=== PATIENT | female | born 1945 | race American Indian/Alaskan Native ===

== ENCOUNTER 2020-03-30 07:56 | Day surgery (SDC) | payer MEDICARE ==
[2020-03-30] MEDS ORDERED: ASPIRIN EC 325 MG TAB PO ONE (08:14)
[2020-03-30 08:43] LABS: Basophils # (Auto) 0.1 K/mm3 (0.0-0.1); Eosinophils # (Auto) 0.2 K/mm3 (0.0-0.4); Hematocrit 38.3 % (30.3-42.9); Lymphocytes # (Auto) 2.7 K/mm3 (1.2-5.4); Lymphocytes % (Auto) 35.4 % (13.4-35.0); Mean Corpuscular HGB Conc 34 % (30-34); Mean Corpuscular Volume 84 fl (79-97); Monocytes # (Auto) 0.5 K/mm3 (0.0-0.8); Monocytes % (Auto) 6.8 % (0.0-7.3); Platelet Count 338 K/mm3 (140-440); Red Blood Count 4.55 M/mm3 (3.65-5.03); Red Cell Distribution Width 17.1 % (13.2-15.2)
[2020-03-30 08:52] LABS: INR 0.91 (0.87-1.13)
[2020-03-30 08:53] LABS: Partial Thromboplastin Time 29.2 Sec. (24.2-36.6)
[2020-03-30 08:55] LABS: BUN/Creatinine Ratio 20; Blood Urea Nitrogen 18 mg/dL (7-17); Calcium 9.1 mg/dL (8.4-10.2); Hemolysis Index 5
[2020-03-30] MEDS ORDERED: SODIUM CHLORIDE 0.9% 500 ML 500 ML IV SCH (09:00)
[2020-03-30] MEDS ORDERED: HEPARIN/NS 5000 UNIT/500ML 1,000 ML IR ONE (09:41)
[2020-03-30] MEDS ORDERED: HEPARIN 10,000 UNITS/10 ML VIAL ONE (09:41)
[2020-03-30] MEDS ORDERED: MIDAZOLAM 2 MG/2 ML INJ ONE (09:41)
[2020-03-30] MEDS ORDERED: VERAPAMIL 5 MG/2 ML INJ ONE (09:42)
[2020-03-30] MEDS ORDERED: NITROGLYCERIN SYRINGE 3 ML ONE (09:42)
[2020-03-30] MEDS ORDERED: fentaNYL 100 MCG/2 ML INJ ONE (09:42)
[2020-03-30] MEDS ORDERED: LIDOCAINE (2%) 20 MG/1 ML VIAL 20 ML MDV INFILTRATI ONE (09:42)
--- NOTE | 2020-03-30 10:46 | Cardiac Catherization Report ---
CARDIAC CATHETERIZATION REPORT REASON FOR PROCEDURE: Chest pain, history of coronary artery disease. PROCEDURES: 1. Left heart catheterization. 2. Selective left and right coronary angiography. 3. Left ventricular angiography. 4. Sedation time, start 10:05, end 10:18. I was present for the entire procedure and supervised the moderate sedation protocol. The patient was prepped and draped in a sterile fashion after informed consent. The right radial cath site was prepped and draped after a negative Robert's test. The right radial artery was entered using Seldinger technique followed by placement of a 6-Tajik hydrophilic sheath. Routine radial cocktail was administered via the sheath. Selective left and right coronary angiography was performed using a #3.5 left Og, and a #4 right Og. The pigtail catheter was used for left ventricular angiography. The catheters were then removed, sheath removed, and hemostasis achieved using a TR band. The patient was returned to the postprocedure unit in stable condition. There were no complications. FINDINGS: HEMODYNAMICS: Left ventricular end-diastolic pressure was 24, following coronary angiography. Ascending aortic pressure was 137/80. There was no significant pressure gradient on pullback across the aortic valve. CORONARY ANGIOGRAPHY: The left main coronary artery was free of significant disease. A small to medium sized proximal diagonal branch of the LAD contained a 70-80% stenosis of its proximal segment, otherwise the LAD and the rest of the diagonal system was free of significant disease. A large ramus intermedius artery was free of significant disease. The circumflex artery contained mild irregularities in its distal segment. The right coronary artery was dominant. This vessel was completely occluded in its proximal to mid segment. This was a chronic total occlusion. There was collateralization of the distal right coronary segments from the left coronary system. There was overall mild left ventricular systolic dysfunction with ejection fraction 40-45%. We noted a [id number] degree of mid and basal inferior hypokinesis. CONCLUSIONS: 1. Coronary artery disease with chronic total occlusion of the right coronary artery, perfused by left to right collaterals. 2. Borderline severity stenosis of a small to medium sized diagonal branch of the LAD, otherwise the left coronary system is free of significant disease. 3. Mild left ventricular systolic dysfunction with ejection fraction of 40-45%. RECOMMENDATION: Continue risk factor modification and medical therapy. If the patient's angina persists on optimal medical therapy, consider [employer] intervention to the right coronary artery. JOB# [id number] CHRIS/DEMETRA
[2020-03-30] MEDS ORDERED: traMADol 50 MG TAB PO PRN (11:03)
[2020-03-30] MEDS ORDERED: HYDROcodone/ACETAMINOPHEN 5-325 MG TAB PO PRN (11:03)
--- NOTE | 2020-03-30 11:07 | Discharge Summary ---
Short Stay Discharge Plan Activity: advance as tolerated Weight Bearing Status: Full Weight Bearing Diet: low fat, low cholesterol, low salt, diabetic Wound: keep clean and dry Special Instructions: smoking cessation, no heavy lifting (3 days), hold Metformin (for 48hrs post procedure) Follow up with: PRIMARY CAREMD [Primary Care Provider] - 7 Days DOT KING MD [Staff Physician] - 7 Days
[2020-03-30] MEDS ORDERED: SODIUM CHLORIDE 0.9% 1000 ML 1,000 ML IV SCH (11:15)
[2020-03-30 15:16] VITALS: BP 140/71
== END 2020-03-30 15:00 | disposition home or self-care (01) ==
LOC: CATHLABREC 07:56
PROVIDERS: ATTEND Internal Medicine Cardiovascular Disease
DX: R07.89 Other chest pain (principal); I25.10 Atherosclerotic heart disease of native coronary artery without angina pectoris; F17.210 Nicotine dependence, cigarettes, uncomplicated; H40.9 Unspecified glaucoma; E78.00 Pure hypercholesterolemia, unspecified; I10 Essential (primary) hypertension; M19.90 Unspecified osteoarthritis, unspecified site; J44.9 Chronic obstructive pulmonary disease, unspecified; Z90.710 Acquired absence of both cervix and uterus; Z79.899 Other long term (current) drug therapy; Z79.82 Long term (current) use of aspirin; Z88.8 Allergy status to other drugs, medicaments and biological substances; Z98.890 Other specified postprocedural states; Z98.49 Cataract extraction status, unspecified eye
CPT/HCPCS: 36415; 80048; 85025; 85610; 85730; 93005; 93458; 99156; C1894; J1644; J2250; J3010; J7040; Q9967